=== PATIENT | male | born 1940 ===

== ENCOUNTER 2022-10-09 06:13 | Outpatient (CLI) | payer OTHER | END 2022-10-09 06:14 | disposition home or self-care (01) | LOC: LAB 06:13 | PROVIDERS: ATTEND Orthopaedic Surgery | DX: E55.9 Vitamin D deficiency, unspecified (principal); M85.9 Disorder of bone density and structure, unspecified; E56.1 Deficiency of vitamin K; E21.3 Hyperparathyroidism, unspecified; E88.9 Metabolic disorder, unspecified ==